=== PATIENT | male | born 1975 | race Caucasian/White ===

== ENCOUNTER 2016-06-25 21:58 | Emergency (ER) | payer SELFPAY ==
[2016-06-25 22:07] VITALS: TEMP 98; BMI 47.6
[2016-06-25] MEDS ORDERED: LORAZEPAM 1 MG TAB PO ONE (22:33)
[2016-06-25 22:52] LABS: AUTOMATED BASOPHIL 0.6 % (0-2); AUTOMATED LYMPH 28.7 % (17-44); AUTOMATED MONOCYTE 6.5 % (3-10); AUTOMATED NEUTROPHIL 57.2 % (45-76); MPV 7.6 fL (7.4-10.4)
[2016-06-25 23:02] LABS: BLOOD UREA NITROGEN 16 MG/DL (9-20); CALCIUM 9.5 MG/DL (8.4-10.2); CALCULATED OSMOLALITY 266 MOs/Kg (270-290); CHLORIDE 102 mEq/L (98-107); ETOH-MGDL < 10 mg/dL; GLUCOSE 85 mg/dL (70-99); SODIUM LEVEL 138 mEq/L (137-146); TOTAL PROTEIN 8.9 G/DL (6.3-8.2)
[2016-06-25 23:08] LABS: LEUKOCYTES/URINE NEG (NEGATIVE); NITRITE/URINE NEG (NEGATIVE); RBC/URINE 0-2 (0-2); URINE OCCULT BLOOD NEG (NEG/TRACE); WBC/URINE 0-2 (0-2)
[2016-06-25 23:10] LABS: ALL NEG? YES; MDMA* NEG (NEGATIVE); METHAMPHETAMINES NEG (NEGATIVE); OXYCODONE NEG (NEGATIVE)
--- NOTE | 2016-06-25 23:39 | EDPRACDOC ---
- General Information Chief Complaint: Psychiatric Illness Stated Complaint: ANXIETY Time Seen by Provider: 06/25/16 22:14 Information Source: Patient Mode of Arrival: Car Home Medications: Home Medications Lorazepam [Ativan] 1 mg PO TID PRN #10 tab 06/25/16 Allergies/Adverse Reactions: Allergies Allergy/AdvReac Type Severity Reaction Status Date / Time No Known Allergies Allergy Verified 06/25/16 22:07 - History of Present Illness Onset: SEVERAL WEEKS HPI: PT PRESENTS WITH THE C/O INCREASED ANXIETY AND DEPRESSION. PT STATES HE IS UNSURE WHY HE IS HAVING THE FEELING HE IS HAVING. STATES HE HAS MOMENTS WHERE HE FEELS EXTREMELY ANXIOUS, HAS INCREASED HEART RATE, SHOB, GETS RED IN THE FACE , NOISES BOTHER HIM MORE THAN USUAL. TO MOMENTS WHERE HE IS CRYING FOR NO REASON. STATES HE IS AT A GOOD TIME IN HIS LIFE, HAS A GOOD JOB, HOME AND RELATIVELY GOOD HEALTH. DENIES ANY RECENT DEATHS IN THE FAMILY OR RECENT STRESSORS. PT DENIES DRUG OR ALCOHOL USE. STATES HE DID USE ILLICIT DRUGS IN THE PAST. PT DENIES SI OR HI Reason for Seeking Treatment: Self-referral Presents With: Reports: Depression, Anxiety Expresses: Denies: Suicidal Intent, Suicidal Plan, Left Suicide Note, None, SUIC , U, O Suicidal Plan: Reports: None. Denies: Overdose, Laceration, Gun, Other, U Suicidal Attempt: Reports: N. Denies: Laceration, GSW, Hanging, Carbon Monoxide , Other, U Stressors: Reports: None Relevant History: Denies: Depression, None, Anxiety, Schizophrenia, Bipolar, Suicidal Attempt, Inpatient Treatment, Outpatient Treatment, Other Medication Compliance: N/A Tetanus Up To Date?: No Able to Care for Self: Yes Able to Control Self: Yes Associated Signs and Symptoms: Reports: Anxiety, Depression ED Past Medical History - History Reviewed Yes Nurses notes reviewed and agree except as marked - Patient Medical History Cardiac History: Reports: Hypertension Psychological History: Denies: Depression - Social Medical History Smoking Status: Never smoker EDM Review of Systems - Review of Systems ROS Negative Except as Marked: Yes All systems reviewed and were negative except as marked - Physical Exam Constitutional: Alert Oriented to: Time, Person, Place Last recorded Vital Signs: Last Vital Signs Temp 98 F 06/25/16 22:01 Pulse 90 06/25/16 22:01 Resp 20 06/25/16 22:01 BP 177/89 06/25/16 22:01 Pulse Ox 96 06/25/16 22:01 Oxygen Pulse Oxygen Saturation 96 O2 Device Room Air Oxygen Flow Rate Fraction of Inspired Oxygen ( FIO2) - HEENT Head: Normal ( normocephalic) Eye Exam: Normal (PERRL, EOMI, Sclera white) Oropharynx: Normal (Pharynx:Moist without exudate,Gums-no swelling) Tympanic Membrane: Normal Nose: No Symptoms Reported (septum midline) Neck: Normal (FROM, trachea at midline) - Respiratory/Cardiovascular Respiratory: Normal - CTA (BBS clear to auscultation without adventitious sounds ) Cardiovascular: Normal (RRR without murmur, gallop or rub) - GI Auscultation: Normal (NABS) Palpation: Normal (Soft,No rebound or guarding, non distended) Tenderness: Non tender Leach's Sign: Negative Rectal Exam: Deferred - Musculoskeletal Back: Normal (Non-Tender) Extremities: Normal (Normal tone, Pulses 2+ No cyanosis or edema, FROM) - Integumentary Skin: Normal, Warm, Dry Lymphatics: Normal (no adenopathy) - Neurologic Memory Impaired: Normal Motor Function: Normal (Normal tone, Pulses 2+ No cyanosis or edema, FROM) Cranial Nerve: Normal (CN II-X11 intact sensation, strength 5/5) Cerebellar: Normal Mood Description: Normal Perception: Normal Initial Evaluation Apperance: Neat, Older than stated age Attitude: Cooperative Mood: Sad Affect: Congruent w/ mood Insight: Good Judgement: Good Memory Description: Intact Depressive Symptoms: Reports: Crying episodes Delusion Description: Reports: Not Present Hallucination Type: Reports: None Hallucinations Severity: Reports: None Hallucinations affecting more than one sensory system: No Recommend /or Refer: Outpatient Therapy, Primary Care follow up - Differential Diagnosis Anxiety, Depression - Re-evaluation Re-evaluation 1 Re-evaluation Time: 23:44 SPOKE WITH MENTAL HEALTH WORKER WHO FEELS THAT THE PATIENT IS APPROPRIATE FOR OUTPATIENT THERAPY. WILL HAVE THE PATIENT CONTRACT FOR SAFETY AND WILL GIVE THE PATIENT RESOURCES FOR FOLLOW UP - Results 06/25/16 22:40 06/25/16 22:40 WBC 13.5 xk/uL (3.8-10.8) H 06/25/16 22:40 RBC 4.60 xM/uL (4.70-6.10) L 06/25/16 22:40 Hgb 13.2 g/dL (14.0-18.0) L 06/25/16 22:40 Hct 40.3 % (42-52) L 06/25/16 22:40 MCV 88 fL (80-94) 06/25/16 22:40 MCH 28.8 pg (27-32) 06/25/16 22:40 MCHC 32.8 g/dl (33-36) L 06/25/16 22:40 RDW 14.2 % (11.5-14.5) 06/25/16 22:40 Plt Count 216 xk/uL (130-400) 06/25/16 22:40 MPV 7.6 fL (7.4-10.4) 06/25/16 22:40 Neut % (Auto) 57.2 % (45-76) 06/25/16 22:40 Lymph % (Auto) 28.7 % (17-44) 06/25/16 22:40 [place] % (Auto) 6.5 % (3-10) 06/25/16 22:40 Eos % (Auto) 7.0 % (0-5) H 06/25/16 22:40 Baso % (Auto) 0.6 % (0-2) 06/25/16 22:40 Absolute Neuts (auto) 7.70 xk/uL (1.7-8.2) 06/25/16 22:40 Absolute Lymphs (auto) 3.78 xk/uL (0.65-4.75) 06/25/16 22:40 Sodium 138 mEq/L (137-146) 06/25/16 22:40 Potassium 4.1 mEq/L (3.5-5.1) 06/25/16 22:40 Chloride 102 mEq/L (98-107) 06/25/16 22:40 Carbon Dioxide 28 mMOL/L (22-33) 06/25/16 22:40 Anion Gap 12 mEq/L (8-16) 06/25/16 22:40 BUN 16 MG/DL (9-20) 06/25/16 22:40 Creatinine 0.90 MG/DL (0.66-1.25) 06/25/16 22:40 Estimated GFR (MDRD) > 60 mL/min (>=60) 06/25/16 22:40 Glucose 85 mg/dL (70-99) 06/25/16 22:40 Calculated Osmolality 266 MOs/Kg (270-290) L 06/25/16 22:40 Calcium 9.5 MG/DL (8.4-10.2) 06/25/16 22:40 Total Bilirubin 1.3 MG/DL (0.2-1.3) 06/25/16 22:40 AST 102 IU/L (17-59) H 06/25/16 22:40 ALT 61 IU/L (21-72) 06/25/16 22:40 Alkaline Phosphatase 121 IU/L (38-126) 06/25/16 22:40 Total Protein 8.9 G/DL (6.3-8.2) H 06/25/16 22:40 Albumin 4.3 G/DL (3.5-5.0) 06/25/16 22:40 Urine Color Yellow 06/25/16 22:59 Urine Clarity Clear 06/25/16 22:59 Urine pH 7.0 (5.0-8.0) 06/25/16 22:59 Ur Specific [place] 1.020 (1.003-1.035) 06/25/16 22:59 Urine Protein Neg (NEG/TRACE) 06/25/16 22:59 Urine Glucose (UA) Neg (NEGATIVE) 06/25/16 22:59 Urine Ketones Neg (NEGATIVE) 06/25/16 22:59 Urine Occult Blood Neg (NEG/TRACE) 06/25/16 22:59 Urine Nitrite Neg (NEGATIVE) 06/25/16 22:59 Urine Bilirubin Neg (NEGATIVE) 06/25/16 22:59 Urine Urobilinogen <2.0 MG/DL (0-1) 06/25/16 22:59 Ur Leukocyte Esterase Neg (NEGATIVE) 06/25/16 22:59 Urine RBC 0-2 (0-2) 06/25/16 22:59 Urine WBC 0-2 (0-2) 06/25/16 22:59 Urine Bacteria Few (NEG/FEW) 06/25/16 22:59 Urine Opiates Screen Neg (NEGATIVE) 06/25/16 22:59 Ur Oxycodone Screen Neg (NEGATIVE) 06/25/16 22:59 Urine Methadone Screen Neg (NEGATIVE) 06/25/16 22:59 Ur Barbiturates Screen Neg (NEGATIVE) 06/25/16 22:59 Ur Tricyclics Screen Neg (NEGATIVE) 06/25/16 22:59 Ur Phencyclidine Scrn Neg (NEGATIVE) 06/25/16 22:59 Ur Amphetamines Screen Neg (NEGATIVE) 06/25/16 22:59 U Methamphetamines Scrn Neg (NEGATIVE) 06/25/16 22:59 Urine MDMA Screen Neg (NEGATIVE) 06/25/16 22:59 U Benzodiazepines Scrn Neg (NEGATIVE) 06/25/16 22:59 Urine Cocaine Screen Neg (NEGATIVE) 06/25/16 22:59 Ur THC Screen Neg (NEGATIVE) 06/25/16 22:59 Plasma/Serum Ethyl Alc % (<0.01) 06/25/16 22:40 Lab Results 06/25/16 06/25/16 06/25/16 22:59 22:59 22:40 WBC 13.5 H RBC 4.60 L Hgb 13.2 L Hct 40.3 L MCV 88 MCH 28.8 MCHC 32.8 L RDW 14.2 Plt Count 216 MPV 7.6 Neut % (Auto) 57.2 Lymph % (Auto) 28.7 [place] % (Auto) 6.5 Eos % (Auto) 7.0 H Baso % (Auto) 0.6 Absolute Neuts (auto) 7.70 Absolute Lymphs (auto) 3.78 Sodium Potassium Chloride Carbon Dioxide Anion Gap BUN Creatinine Estimated GFR (MDRD) Glucose Calculated Osmolality Calcium Total Bilirubin AST ALT Alkaline Phosphatase Total Protein Albumin Urine Color Yellow Urine Clarity Clear Urine pH 7.0 Ur Specific [place] 1.020 Urine Protein Neg Urine Glucose (UA) Neg Urine Ketones Neg Urine Occult Blood Neg Urine Nitrite Neg Urine Bilirubin Neg Urine Urobilinogen <2.0 Ur Leukocyte Esterase Neg Urine RBC 0-2 Urine WBC 0-2 Urine Bacteria Few Urine Opiates Screen Neg Ur Oxycodone Screen Neg Urine Methadone Screen Neg Ur Barbiturates Screen Neg Ur Tricyclics Screen Neg Ur Phencyclidine Scrn Neg Ur Amphetamines Screen Neg U Methamphetamines Scrn Neg Urine MDMA Screen Neg U Benzodiazepines Scrn Neg Urine Cocaine Screen Neg Ur THC Screen Neg Plasma/Serum Ethyl Alc 06/25/16 22:40 WBC RBC Hgb Hct MCV MCH MCHC RDW Plt Count MPV Neut % (Auto) Lymph % (Auto) [place] % (Auto) Eos % (Auto) Baso % (Auto) Absolute Neuts (auto) Absolute Lymphs (auto) Sodium 138 Potassium 4.1 Chloride 102 Carbon Dioxide 28 Anion Gap 12 BUN 16 Creatinine 0.90 Estimated GFR (MDRD) > 60 Glucose 85 Calculated Osmolality 266 L Calcium 9.5 Total Bilirubin 1.3 AST 102 H ALT 61 Alkaline Phosphatase 121 Total Protein 8.9 H Albumin 4.3 Urine Color Urine Clarity Urine pH Ur Specific [place] Urine Protein Urine Glucose (UA) Urine Ketones Urine Occult Blood Urine Nitrite Urine Bilirubin Urine Urobilinogen Ur Leukocyte Esterase Urine RBC Urine WBC Urine Bacteria Urine Opiates Screen Ur Oxycodone Screen Urine Methadone Screen Ur Barbiturates Screen Ur Tricyclics Screen Ur Phencyclidine Scrn Ur Amphetamines Screen U Methamphetamines Scrn Urine MDMA Screen U Benzodiazepines Scrn Urine Cocaine Screen Ur THC Screen Plasma/Serum Ethyl Alc - EKG EKG #1 EKG Time: 22:44 -: Yes EKG interpreted by me Rate: bpm: 81 [place]: Normal Rhythm: NSR Block: None Hypertrophy: None ST: Normal Decision Time to Discharge: 00:10 - Departure Disposition: Home Condition: Stable Final Diagnosis: Moderate major depression, single episode Instructions: Depression (GEN) Education/Counseling Given To: Patient Education/Counseling Given Regarding: Diagnosis, Treatment, Prognosis, Follow Up Referrals: Brian Dos Santos MD [Staff Physician] - [facility] [NonStaff] - One Week Prescriptions: New Lorazepam [Ativan] 1 mg PO TID PRN #10 tab PRN Reason: Anxiety Forms: Excuse Note Additional Instructions: PLEASE MAKE A FOLLOW UP WITH PCP. MAKE A FOLLOW UP WITH RESOURCES GIVEN TO YOUR BY MENTAL HEALTH. RETURN TO THE ED FOR WORSENING SYMPTOMS OR CONCERNS
[2016-06-26 00:41] VITALS: BP 182/116; PULSE 86
== END 2016-06-26 00:40 | disposition home or self-care (01) ==
LOC: ED 21:58
DX: F32.1 Major depressive disorder, single episode, moderate (principal)
CPT/HCPCS: 36415; 80053; 80307; 81001; 85025; 93005; 99283; J3490